=== PATIENT | male | born 1975 | race Caucasian/White ===

== ENCOUNTER 2017-09-24 21:14 | Inpatient (IN) | payer OTHER ==
[~2017-09-24] VITALS: Ht 175.3 cm; Wt 65.1 kg
[2017-09-25 02:36] LABS: BASOPHIL (%) 1.4 % (0-1); BASOPHIL COUNT 0.1 K/uL (0-0.1); EOSINOPHIL (%) 1.4 % (0-5); EOSINOPHIL COUNT 0.1 K/uL (0-0.3); HEMATOCRIT 38.3 % (38.0-50.0); HEMOGLOBIN 12.8 G/DL (12.5-16.6); IMMATURE GRANULOCYTE (%) 0.3 % (0.0-0.7); LYMPHOCYTE (%) 18.1 % (15-42); LYMPHOCYTE COUNT 1.1 K/uL (1.0-2.8); MCH 30.3 PG (29.0-34.0); MCHC 33.4 G/DL (30.0-36.0); MCV 90.5 FL (86-99); MONOCYTE COUNT 0.5 K/uL (0-0.8); NEUTROPHIL (%) 69.8 % (45-76); NEUTROPHIL COUNT 4.1 K/uL (1.8-6.4); PLATELET COUNT 369 K/uL (156-360); RBC DIS.WIDTH-CV 14.7 % (11.8-14.6); RBC DIS.WIDTH-SD 49.1 % (39-53); RED BLOOD COUNT 4.23 M/uL (4.00-5.50); WHITE BLOOD COUNT 5.9 K/uL (4.1-10.2)
[2017-09-25 02:44] LABS: CHLORIDE 100 mEq/L (99-109); POTASSIUM 4.1 mEq/L (3.7-5.4); SODIUM 136 mEq/L (136-147)
[2017-09-25 02:45] LABS: GLUCOSE 107 mg/dL (70-99)
[2017-09-25 02:49] LABS: CREATININE 0.7 mg/dL (0.6-1.3); GFR ESTIMATE (CALCULATED) > 59 mL/min/ (58.99-99999)
[2017-09-25 02:50] LABS: UREA NITROGEN (BUN) 12 mg/dL (9-23)
[2017-09-25] MEDS ORDERED: BUPRENORPHIN-N1 EACH PO (05:18)
[2017-09-25] MEDS ORDERED: CYCLOBENZAPRINE10 MG PO (05:19)
[2017-09-25 06:31] LABS: SERUM ETHYL ALCOHOL < 10 mg/dL
[2017-09-25 14:31] VITALS: BP 119/89
[2017-09-25 19:58] VITALS: BP 136/65
[2017-09-25 20:03] VITALS: BP 113/73
[2017-09-25 23:37] VITALS: BP 121/87
[2017-09-26] VITALS (7 sets, daily range): BP systolic 100–126; BP diastolic 62–93
[2017-09-26 07:07] LABS: HEMATOCRIT 39.1 % (38.0-50.0); HEMOGLOBIN 12.7 G/DL (12.5-16.6); MCH 29.2 PG (29.0-34.0); MCHC 32.5 G/DL (30.0-36.0); MCV 89.9 FL (86-99); PLATELET COUNT 332 K/uL (156-360); RBC DIS.WIDTH-CV 14.4 % (11.8-14.6); RBC DIS.WIDTH-SD 47.8 % (39-53); RED BLOOD COUNT 4.35 M/uL (4.00-5.50)
[2017-09-26 07:31] LABS: CHLORIDE 101 MEQ/L (99-109); CREATININE 0.6 MG/DL (0.6-1.3); GFR ESTIMATE (CALCULATED) > 59 mL/min/ (58.99-99999); GLUCOSE 99 mg/dL (70-99); POTASSIUM 4.4 MEQ/L (3.7-5.4); SODIUM 136 MEQ/L (136-147); UREA NITROGEN (BUN) 12 mg/dL (9-23)
[2017-09-26 10:34] LABS: PTT 33.7 SEC (25-37)
[2017-09-26 11:04] LABS: APPEARANCE CLEAR ((CLEAR)); BILIRUBIN NEGATIVE; BLOOD NEGATIVE; COLOR YELLOW ((YELLOW)); GLUCOSE (STRIP) NEGATIVE; KETONES NEGATIVE; LEUKOCYTES NEGATIVE; NITRITE NEGATIVE; PROTEIN (STRIP) NEGATIVE; SPECIFIC GRAVITY 1.015 (1.000-1.030); UCUL ADDED? NO; UROBILINOGEN 0.2 MG/DL (0.2-1.0)
[2017-09-26 11:19] LABS: BENZODIAZEPINES, URINE SCREEN Negative (200 ng/mL)
[2017-09-27 06:17] LABS: HEMATOCRIT 35.9 % (38.0-50.0); HEMOGLOBIN 11.8 G/DL (12.5-16.6); MCH 29.6 PG (29.0-34.0); MCHC 32.9 G/DL (30.0-36.0); PLATELET COUNT 304 K/uL (156-360); RBC DIS.WIDTH-CV 14.4 % (11.8-14.6); RBC DIS.WIDTH-SD 47.8 % (39-53); RED BLOOD COUNT 3.99 M/uL (4.00-5.50); WHITE BLOOD COUNT 5.3 K/uL (4.1-10.2)
[2017-09-27 06:25] LABS: CHLORIDE 101 MEQ/L (99-109); CREATININE 0.6 MG/DL (0.6-1.3); GFR ESTIMATE (CALCULATED) > 59 mL/min/ (58.99-99999); GLUCOSE 101 mg/dL (70-99); POTASSIUM 3.8 MEQ/L (3.7-5.4); SODIUM 137 MEQ/L (136-147); UREA NITROGEN (BUN) 12 mg/dL (9-23)
[2017-09-27 08:23] VITALS: BP 128/90
[2017-09-27 15:43] VITALS: BP 115/86
[2017-09-27 23:36] VITALS: BP 115/72
[2017-09-28 04:22] LABS: HEMATOCRIT 36.4 % (38.0-50.0); HEMOGLOBIN 12.2 G/DL (12.5-16.6); MCH 30.3 PG (29.0-34.0); MCHC 33.5 G/DL (30.0-36.0); MCV 90.3 FL (86-99); PLATELET COUNT 286 K/uL (156-360); RBC DIS.WIDTH-CV 14.1 % (11.8-14.6); RBC DIS.WIDTH-SD 46.8 % (39-53); RED BLOOD COUNT 4.03 M/uL (4.00-5.50)
[2017-09-28 04:34] LABS: CHLORIDE 99 mEq/L (99-109); POTASSIUM 3.9 mEq/L (3.7-5.4); SODIUM 135 mEq/L (136-147)
[2017-09-28 04:36] LABS: GLUCOSE 88 mg/dL (70-99)
[2017-09-28 04:39] LABS: CREATININE 0.7 mg/dL (0.6-1.3); GFR ESTIMATE (CALCULATED) > 59 mL/min/ (58.99-99999)
[2017-09-28 04:40] LABS: UREA NITROGEN (BUN) 10 mg/dL (9-23)
[2017-09-28 08:06] VITALS: BP 108/77
[2017-09-28 16:30] VITALS: BP 121/82
[2017-09-28 23:34] VITALS: BP 112/76
[2017-09-29 07:30] VITALS: BP 107/70
[2017-09-29 16:07] VITALS: BP 120/81
[2017-09-29 19:50] VITALS: BP 111/73
[2017-09-29 23:51] VITALS: BP 111/74
[2017-09-30 07:45] VITALS: BP 112/70
[2017-09-30 15:42] VITALS: BP 129/88
[2017-10-01 00:32] VITALS: BP 118/82
[2017-10-01 08:20] VITALS: BP 113/71
[2017-10-01 09:17] VITALS: BP 113/71
[2017-10-01] MEDS ORDERED: MORPHINE SULFAT15 M1 PO (11:04)
[2017-10-01] MEDS ORDERED: OXYCODONE-APAP1 EACH PO (11:04)
[2017-10-01] MEDS ORDERED: NICOTINE PATCH1 EAC2 TD (11:04)
[2017-10-02] MEDS ORDERED: PERCOCET 5/31 TABLET PO (21:32)
== END 2017-10-01 16:12 | disposition home or self-care (01) | DRG 552 ==
LOC: EXP 21:14 → EME 21:14 → 3EAST 09-25 04:40 → EDOF 09-25 04:40 → ENRESERV 09-25 04:42 → 3EAST 09-25 14:08
PROVIDERS: Emergency Medicine; Physician Assistant; Physician Assistant Medical; Radiology Diagnostic Radiology
PROC: 0S923ZX Drainage of Lumbar Vertebral Disc, Percutaneous Approach, Diagnostic (ICD-10-PCS; principal; 2017-09-26)
DX: M46.46 Discitis, unspecified, lumbar region (principal); M46.26 Osteomyelitis of vertebra, lumbar region; B95.1 Streptococcus, group B, as the cause of diseases classified elsewhere; M48.061 Spinal stenosis, lumbar region without neurogenic claudication; M51.16 Intervertebral disc disorders with radiculopathy, lumbar region; G89.29 Other chronic pain; F17.200 Nicotine dependence, unspecified, uncomplicated; Z79.891 Long term (current) use of opiate analgesic
CPT/HCPCS: 72132; 77012; 80048; 80202; 80306 90; 81003; 83605; 85025; 85027; 85610; 85651; 85730; 86140; 87040; 87070; 87075; 87077; 87186; 87205; 87641; 93306; 99281; 99285; G0480; J0574; J0692; J1170; J1650; J2270; J2540; J2543; J3010; J3370; J7030; J7050

== ENCOUNTER 2017-10-02 18:12 | Emergency (ER) | payer OTHER ==
[~2017-10-02] VITALS: Ht 175.3 cm; Wt 70.5 kg
[~2017-10-02 18:12] MED LIST: BUPRENORPHIN-N1 EACH PO; CYCLOBENZAPRINE10 MG PO; MORPHINE SULFAT15 M1 PO; NICOTINE PATCH1 EAC2 TD; OXYCODONE-APAP1 EACH PO
[2017-10-02] MEDS ORDERED: PERCOCET 5/31 TABLET PO (21:32)
[2017-10-02 21:56] VITALS: BP 115/87
== END 2017-10-02 21:58 | disposition home or self-care (01) ==
LOC: EME 18:12
DX: M46.20 Osteomyelitis of vertebra, site unspecified (principal); M46.40 Discitis, unspecified, site unspecified; Z95.828 Presence of other vascular implants and grafts; F17.200 Nicotine dependence, unspecified, uncomplicated
CPT/HCPCS: 71045; 99281; 99284; J1885; J2270